=== PATIENT | male | born 1995 | race Two or more races ===

== ENCOUNTER 2022-10-30 11:40 | Emergency (ER) | payer OTHER ==
[~2022-10-30] VITALS: Ht 182.9 cm; Wt 90.7 kg
[2022-10-30 11:47] VITALS: BP 116/72
--- NOTE | 2022-10-30 12:00 | NUR ---
BIBS FOR ANKLE PAIN. A/O X 3, ABLE TO MAKE NEEDS KNOWN, TOLERATING WELL ON ROOM AIR.
[2022-10-30] MEDS ORDERED: IBUP-1955 PO (12:57)
--- NOTE | 2022-10-30 13:14 | NUR ---
Patient discharged to home in stable condition. Written and verbal after care instructions given. Patient verbalizes understanding of instruction.
== END 2022-10-30 13:16 | disposition home or self-care (01) ==
LOC: ER 11:43
DX: S93.502A Unspecified sprain of left great toe, initial encounter (principal); S90.212A Contusion of left great toe with damage to nail, initial encounter; Z98.890 Other specified postprocedural states; Z60.2 Problems related to living alone; Z79.899 Other long term (current) drug therapy; W20.8XXA Other cause of strike by thrown, projected or falling object, initial encounter; Y93.89 Activity, other specified; Y92.89 Other specified places as the place of occurrence of the external cause; Y99.8 Other external cause status
CPT/HCPCS: 73630-TC